=== PATIENT | female | born 1975 | race Caucasian/White ===

== ENCOUNTER → 2016-04-07 | Outpatient (CLI) | payer BC ==
--- NOTE | 2016-04-07 08:47 | CT ---
EXAMINATION TYPE: CT brain wo con DATE OF EXAM: 04/07/2016 8:34 AM COMPARISON: NONE HISTORY: Headache CT DLP: 1012.70 mGycm Automated exposure control for dose reduction was used. FINDINGS: Central structures are midline. There is no evidence of hydrocephalus. No acute focal lesion, mass ef fect or midline shift is seen. I do not see evidence of intracranial blood. Visualized portions of the paranasal sinuses and mastoids are clear. There is no depressed skull frac ture. IMPRESSION: NORMAL CT SCAN OF THE BRAIN.
== END | disposition home or self-care (01) ==
LOC: RADCTMAIN 08:11
PROVIDERS: ATTEND Family Medicine
DX: R51 Headache (principal)
CPT/HCPCS: 70450

== ENCOUNTER 2016-07-12 19:29 | Emergency (ER) | payer BC ==
[2016-07-12] MEDS ORDERED: SODIUM CHLORIDE 0.9% 500 ML IV STA (20:27)
--- NOTE | 2016-07-12 20:31 | ED ---
Headache HPI - General Chief Complaint: Headache Stated Complaint: dizzy/headache Time Seen by Provider: 07/12/16 20:09 Mode of arrival: ambulatory Limitations: no limitations - History of Present Illness Initial Comments: Planing about headache and numb buzzing feeling in her head buzzing is off-and- on in her head for some time dizziness headache, is quite pounding in her blood pressure was elevated today. She does have a history of tension headache and also has a history of depression she was started on fluoxetine about 3 days ago she don't feel this is because of fluoxetine because she has been on fluoxetine for 10 years prior. Denies any fever no chills no neck stiffness no sore throat no blurred vision no slurred speech - Related Data Home Medications Medication Instructions Recorded Confirmed FLUoxetine HCL [PROzac] 20 mg PO DAILY 09/30/13 07/12/16 Metoprolol Succinate [Toprol XL] 37.5 mg PO DAILY 09/30/13 07/12/16 L.acidoph,Paracasei, B.lactis 1 cap PO DAILY 07/12/16 07/12/16 [Probiotic] Magnesium Oxide [Mag-Ox] 250 mg PO DAILY 07/12/16 07/12/16 Multivitamins, Thera [Multivitamin 1 tab PO DAILY 07/12/16 07/12/16 (formulary)] Allergies Allergy/AdvReac Type Severity Reaction Status Date / Time amoxicillin [Amoxicillin] Allergy Unknown Verified 07/12/16 20:38 bupropion HCl Allergy Rash/Hives Verified 07/12/16 20:38 [From Wellbutrin] codeine Allergy Nausea & Verified 07/12/16 20:38 Vomiting & Diarrhea morphine Allergy Unknown Verified 07/12/16 20:38 sulfamethoxazole Allergy Rash/Hives Verified 07/12/16 20:38 [From Bactrim] trimethoprim [From Bactrim] Allergy Rash/Hives Verified 07/12/16 20:38 Review of Systems ROS Statement: Those systems with pertinent positive or pertinent negative responses have been documented in the HPI. ROS Other: All systems not noted in ROS Statement are negative. Past Medical History Additional Past Medical History / Comment(s): AVNRT, PVC's, /kidney stones/ tumors liver History of Any Multi-Drug Resistant Organisms: None Reported Past Surgical History: Adenoidectomy, Tonsillectomy Additional Past Surgical History / Comment(s): Liver surgery, Hernia repair. Leat surgery performed on cervix Past Psychological History: Anxiety, Depression Smoking Status: Former smoker Past Alcohol Use History: None Reported Past Drug Use History: None Reported General Exam - General Exam Comments Initial Comments: General: The patient is awake and alert, mildly anxious Skin: Skin is warm and dry and no rashes or lesions are noted. Eye: Pupils are equal, round and reactive to light, extra-ocular movements are intact; there is normal conjunctiva bilaterally. Ears, nose, mouth and throat: There are moist mucous membranes and no oral lesions. No obvious signs of sinus flexion Neck: The neck is supple, there is no tenderness Cardiovascular: There is a regular rate and rhythm. No murmur, rub or gallop is appreciated. Respiratory: To auscultation bilateral, no wheezing no rhonchi no distress respiratory bonds noticed Gastrointestinal: Soft, non-distended, non-tender abdomen without masses or organomegaly noted. There is no rebound or guarding present. Bowel sounds are unremarkable. Back: There is no tenderness to palpation in the midline. There is no obvious deformity. Musculoskeletal: Normal ROM, no tenderness, There is no pedal edema. There is no calf tenderness or swelling. No cords were appreciated. Neurological: CN II-XII intact, Cranial nerves III through XII are intact. There are no obvious motor or sensory deficits. Coordination appears grossly intact. Speech is normal. Psychiatric: Cooperative, appropriate mood & affect, normal judgment. Limitations: no limitations Course Vital Signs 07/12/16 07/12/16 19:42 20:46 Temperature 98.3 F Pulse Rate 84 90 Respiratory 20 18 Rate Blood Pressure 177/90 151/94 O2 Sat by Pulse 99 99 Oximetry - Reevaluation(s) Reevaluation #1: 07/12/16 20:36 She reluctantly agreed for the shot of Toradol intramuscular and now she'll go for the head CT 07/12/16 21:27 Patient was reassessed at [address] is pending at this point patient was endorsed to Dr. Burden to follow-up on the head CT, once head CT is reported to normal was she will go home follow-up with her family doctor and it is better with the fluid bolus and she wanted to hold off the Toradol Reevaluation #2: 07/12/16 21:[address] report was filed is a 2130, she is feeling better head CT is normal she is discharged to follow with her family doctor Disposition Clinical Impression: Headache Disposition: HOME SELF-CARE Condition: Good Instructions: Acute Headache (ED) Referrals: Samuel Godfrey MD [Primary Care Provider] - 1-2 days
[2016-07-12] MEDS: KETOROLAC 30 MG/ML 1 ML VIAL IVP STA ×2 (20:44→20:46)
[2016-07-12 20:56] VITALS: RESP 18
--- NOTE | 2016-07-12 21:31 | CT ---
EXAMINATION TYPE: CT brain wo con DATE OF EXAM: 07/12/2016 9:10 PM COMPARISON: 04/07/2016 HISTORY: Headache, dizziness and buzzing noise in ears. CT DLP: 1041.50 mGycm Automated exposure control for dose reduction was used. FINDINGS: The ventricles and sulci appear normal. There is no mass effect nor midline shift. There is no sign o f intracranial hemorrhage. The calvarium appears intact. IMPRESSION: Normal unenhanced head CT scan. No change.
[2016-07-12 21:59] VITALS: BP 125/79; PULSE 70; TEMP 98.4
== END 2016-07-12 22:09 | disposition home or self-care (01) ==
LOC: EC 19:29
DX: R51 Headache (principal); R42 Dizziness and giddiness; F32.9 Major depressive disorder, single episode, unspecified; F41.9 Anxiety disorder, unspecified; Z53.20 Procedure and treatment not carried out because of patient's decision for unspecified reasons; Z87.891 Personal history of nicotine dependence; Z79.899 Other long term (current) drug therapy; Z88.0 Allergy status to penicillin; Z88.5 Allergy status to narcotic agent; Z88.2 Allergy status to sulfonamides; Z88.8 Allergy status to other drugs, medicaments and biological substances
CPT/HCPCS: 70450; 96360; 99283

== ENCOUNTER → 2016-09-15 | Outpatient (CLI) | payer BC ==
--- NOTE | 2016-09-15 09:14 | MM ---
Reason for exam: additional evaluation requested from prior study. Last mammogram was performed 1 year and 6 months ago. History: Family history of breast cancer in maternal aunt at age 40. Physical Findings: Nurse did not find any significant physical abnormalities on exam. MG 3D Diag Mammo W/Cad TREE Bilateral CC and MLO view(s) were taken. Prior study comparison: March 22, 2015, right breast MG 3d diag mammo w/cad RT. September 16, 2014, right breast MG work up mamm w CAD RT. There are scattered fibroglandular densities. No significant new findings when compared with previous films. These results were verbally communicated with the patient and result sheet given to the patient on 09/15/16. ASSESSMENT: Benign, BI-RAD 2 RECOMMENDATION: Routine screening mammogram of both breasts in 1 year.
== END | disposition home or self-care (01) ==
LOC: RADMAMWWP 07:01
PROVIDERS: ATTEND Obstetrics & Gynecology
DX: R92.8 Other abnormal and inconclusive findings on diagnostic imaging of breast (principal)
CPT/HCPCS: G0204; G0279

== ENCOUNTER 2017-07-05 18:10 | Emergency (ER) | payer BC ==
[2017-07-05] MEDS ORDERED: ONDANSETRON 4 MG/2 ML VIAL IVP STA (18:30)
[2017-07-05] MEDS ORDERED: SODIUM CHLORIDE 0.9% 1,000 ML IV STA (18:30)
[2017-07-05] MEDS ORDERED: KETOROLAC 30 MG/ML 1 ML VIAL IVP STA (18:31)
--- NOTE | 2017-07-05 18:35 | ED ---
Abdominal Pain HPI - General Chief Complaint: Abdominal Pain Stated Complaint: Abdominal pain Time Seen by Provider: 07/05/17 18:19 Source: patient Mode of arrival: ambulatory Limitations: no limitations - History of Present Illness Initial Comments: 41-year-old female patient presents to the emergency department today for evaluation of right upper quadrant abdominal pain radiates into her back. Patient states that this has been present for the last 3 weeks intermittently. Patient states this seems to be worsening. States she has been nauseated with this but has not vomited. She denies any constipation or diarrhea. Denies any fevers or chills. States she is urinating without difficulty. Patient has had the left lobe of the liver resected for benign tumor and a subsequent incisional hernia repair. Patient denies any recent rash, shortness breath, chest pain, numbness, tingling, dizziness, weakness, hematuria, dysuria, urinary urgency, urinary frequency, headache, visual changes, or any other complaints. - Related Data Home Medications Medication Instructions Recorded Confirmed FLUoxetine HCL [PROzac] 20 mg PO DAILY 09/30/13 07/05/17 Metoprolol Succinate [Toprol XL] 25 mg PO DAILY 09/30/13 07/05/17 Esomeprazole Magnesium [NexIUM] 20 mg PO DAILY 07/05/17 07/05/17 Allergies Allergy/AdvReac Type Severity Reaction Status Date / Time amoxicillin [Amoxicillin] Allergy Unknown Verified 07/05/17 18:36 bupropion HCl Allergy Rash/Hives Verified 07/05/17 18:36 [From Wellbutrin] codeine Allergy Nausea & Verified 07/05/17 18:36 Vomiting & Diarrhea morphine Allergy Unknown Verified 07/05/17 18:36 sulfamethoxazole Allergy Rash/Hives Verified 07/05/17 18:36 [From Bactrim] trimethoprim [From Bactrim] Allergy Rash/Hives Verified 07/05/17 18:36 sertraline [From Zoloft] AdvReac SUICIDAL Verified 07/05/17 18:36 THOUGHTS Review of Systems ROS Statement: Those systems with pertinent positive or pertinent negative responses have been documented in the HPI. ROS Other: All systems not noted in ROS Statement are negative. Past Medical History Additional Past Medical History / Comment(s): AVNRT, PVC's, /kidney stones/ tumors liver History of Any Multi-Drug Resistant Organisms: None Reported Past Surgical History: Adenoidectomy, Tonsillectomy Additional Past Surgical History / Comment(s): Liver surgery, Hernia repair. Leat surgery performed on cervix Past Psychological History: Anxiety, Depression Smoking Status: Former smoker Past Alcohol Use History: None Reported Past Drug Use History: None Reported General Exam Limitations: no limitations General appearance: alert, in no apparent distress, other (This is a well- developed, well-nourished adult female patient in no acute distress. Vital signs upon presentation are temperature 98.3F, pulse 93, respirations 20, blood pressure 156/86, pulse ox 99% on room air.) Eye exam: Present: normal appearance, PERRL, EOMI. Absent: scleral icterus, conjunctival injection, periorbital swelling ENT exam: Present: normal exam, normal oropharynx, mucous membranes moist Respiratory exam: Present: normal lung sounds bilaterally. Absent: respiratory distress, wheezes, rales, rhonchi, stridor Cardiovascular Exam: Present: regular rate, normal rhythm, normal heart sounds. Absent: systolic murmur, diastolic murmur, rubs, gallop, clicks GI/Abdominal exam: Present: soft, normal bowel sounds. Absent: distended, tenderness, guarding, rebound, rigid Neurological exam: Present: alert, oriented X3, CN II-XII intact Psychiatric exam: Present: normal affect, normal mood Skin exam: Present: warm, dry, intact, normal color. Absent: rash Course Vital Signs 07/05/17 07/05/17 18:16 20:39 Temperature 98.3 F 97.2 F L Pulse Rate 93 98 Respiratory 20 18 Rate Blood Pressure 156/86 138/89 O2 Sat by Pulse 99 99 Oximetry Medical Decision Making - Medical Decision Making 41-year-old female patient presented to the emergency department today for evaluation of right upper quadrant abdominal pain that radiated into her back. Physical examination is unremarkable. Abdomen was nontender. Labs reviewed and are unremarkable. Patient did have a small amount of blood in her urine. Did discuss the possibility of a kidney stone, patient states the pain feels different and she does not want to be treated for kidney stone. She does have an appointment with her primary care physician tomorrow. She is urged to keep this appointment. Return parameters discussed in detail. She verbalizes understanding and agrees with this plan. - Lab Data Result diagrams: 07/05/17 18:30 07/05/17 18:30 Lab Results 07/05/17 07/05/17 07/05/17 Range/Units 18:30 18:30 18:30 WBC 11.8 H (3.8-10.6) k/uL RBC 4.84 (3.80-5.40) m/uL Hgb 13.3 (11.4-16.0) gm/dL Hct 40.2 (34.0-46.0) % MCV 83.1 (80.0-100.0) fL MCH 27.5 (25.0-35.0) pg MCHC 33.1 (31.0-37.0) g/dL RDW 13.2 (11.5-15.5) % Plt Count 368 (150-450) k/uL Neutrophils % 66 % Lymphocytes % 26 % Monocytes % 5 % Eosinophils % 1 % Basophils % 0 % Neutrophils # 7.8 H (1.3-7.7) k/uL Lymphocytes # 3.1 (1.0-4.8) k/uL Monocytes # 0.5 (0-1.0) k/uL Eosinophils # 0.1 (0-0.7) k/uL Basophils # 0.1 (0-0.2) k/uL Sodium 141 (137-145) mmol/L Potassium 3.9 (3.5-5.1) mmol/L Chloride 104 (98-107) mmol/L Carbon Dioxide 24 (22-30) mmol/L Anion Gap 13 mmol/L BUN 13 (7-17) mg/dL Creatinine 0.80 (0.52-1.04) mg/dL Est GFR (CKD-EPI)AfAm >90 (>60 ml/min/1.73 sqM) Est GFR (CKD-EPI)NonAf >90 (>60 ml/min/1.73 sqM) Glucose 104 H (74-99) mg/dL Calcium 9.6 (8.4-10.2) mg/dL Total Bilirubin 0.3 (0.2-1.3) mg/dL AST 28 (14-36) U/L ALT 24 (9-52) U/L Alkaline Phosphatase 87 (38-126) U/L Total Protein 7.2 (6.3-8.2) g/dL Albumin 4.5 (3.5-5.0) g/dL Amylase 60 (30-110) U/L Lipase 116 (23-300) U/L Urine Color Urine Appearance (Clear) Urine pH (5.0-8.0) Ur Specific [place] (1.001-1.035) Urine Protein (Negative) Urine Glucose (UA) (Negative) Urine Ketones (Negative) Urine Blood (Negative) Urine Nitrite (Negative) Urine Bilirubin (Negative) Urine Urobilinogen (<2.0) mg/dL Ur Leukocyte Esterase (Negative) Urine RBC (0-5) /hpf Urine WBC (0-5) /hpf Ur Squamous Epith Cells (0-4) /hpf Urine Mucus (None) /hpf Urine HCG, Qual Not Detected (Not Detectd) 07/05/17 Range/Units 18:30 WBC (3.8-10.6) k/uL RBC (3.80-5.40) m/uL Hgb (11.4-16.0) gm/dL Hct (34.0-46.0) % MCV (80.0-100.0) fL MCH (25.0-35.0) pg MCHC (31.0-37.0) g/dL RDW (11.5-15.5) % Plt Count (150-450) k/uL Neutrophils % % Lymphocytes % % Monocytes % % Eosinophils % % Basophils % % Neutrophils # (1.3-7.7) k/uL Lymphocytes # (1.0-4.8) k/uL Monocytes # (0-1.0) k/uL Eosinophils # (0-0.7) k/uL Basophils # (0-0.2) k/uL Sodium (137-145) mmol/L Potassium (3.5-5.1) mmol/L Chloride (98-107) mmol/L Carbon Dioxide (22-30) mmol/L Anion Gap mmol/L BUN (7-17) mg/dL Creatinine (0.52-1.04) mg/dL Est GFR (CKD-EPI)AfAm (>60 ml/min/1.73 sqM) Est GFR (CKD-EPI)NonAf (>60 ml/min/1.73 sqM) Glucose (74-99) mg/dL Calcium (8.4-10.2) mg/dL Total Bilirubin (0.2-1.3) mg/dL AST (14-36) U/L ALT (9-52) U/L Alkaline Phosphatase (38-126) U/L Total Protein (6.3-8.2) g/dL Albumin (3.5-5.0) g/dL Amylase (30-110) U/L Lipase (23-300) U/L Urine Color Yellow Urine Appearance Cloudy H (Clear) Urine pH 6.5 (5.0-8.0) Ur Specific [place] 1.025 (1.001-1.035) Urine Protein Trace H (Negative) Urine Glucose (UA) Negative (Negative) Urine Ketones Negative (Negative) Urine Blood Small H (Negative) Urine Nitrite Negative (Negative) Urine Bilirubin Negative (Negative) Urine Urobilinogen 2.0 (<2.0) mg/dL Ur Leukocyte Esterase Moderate H (Negative) Urine RBC 1 (0-5) /hpf Urine WBC 13 H (0-5) /hpf Ur Squamous Epith Cells 9 H (0-4) /hpf Urine Mucus Occasional H (None) /hpf Urine HCG, Qual (Not Detectd) - Radiology Data Radiology results: report reviewed, image reviewed 2 views of the abdomen are obtained. There is no pneumoperitoneum. No pneumatosis. Bowel gas pattern is normal. Hepatomegaly is redemonstrated, similar to the prior study. The soft tissues and skeletal structures of the abdomen and pelvis are otherwise unremarkable. There are no calcifications over the kidneys are expected course of the ureters or the urinary bladder. Impression by Dr. Drake Gage shows redemonstrated hepatomegaly, otherwise negative exam. Ultrasound of the right upper quadrant abdomen was obtained. Report was reviewed in its entirety. Impression by Dr. Drake Gage shows no acute process. Disposition Clinical Impression: Abdominal pain Disposition: HOME SELF-CARE Condition: Good Instructions: Abdominal Pain (ED) Additional Instructions: Follow-up with your primary care physician for recheck as soon as possible. Return here immediately for any new, worsening, or concerning symptoms. Is patient prescribed a controlled substance at d/c from ED?: No Referrals: Samuel Godfrey MD [Primary Care Provider] - 1-2 days Time of Disposition: 20:54
[2017-07-05 18:50] LABS: Basophils # (A) 0.1 k/uL (0-0.2); Basophils % (A) 0 %; Eosinophils # (A) 0.1 k/uL (0-0.7); Eosinophils % (A) 1 %; HCT 40.2 % (34.0-46.0); HGB 13.3 gm/dL (11.4-16.0); Lymphocytes # (A) 3.1 k/uL (1.0-4.8); Lymphocytes % (A) 26 %; MCH 27.5 pg (25.0-35.0); MCHC 33.1 g/dL (31.0-37.0); MCV 83.1 fL (80.0-100.0); Mean Platelet Volume 6.3; Monocytes # (A) 0.5 k/uL (0-1.0); Monocytes % (A) 5 %; Neutrophils # (A) 7.8 k/uL (1.3-7.7); Neutrophils % (A) 66 %; Platelet Count 368 k/uL (150-450); RBC 4.84 m/uL (3.80-5.40); RDW 13.2 % (11.5-15.5); WBC 11.8 k/uL (3.8-10.6)
[2017-07-05 18:51] LABS: Appearance,Urine Cloudy (Clear); Bilirubin,Urine Negative (Negative); Blood,Urine Small (Negative); Color,Urine Yellow; Glucose,Urine (UA) Negative (Negative); Ketones,Urine Negative (Negative); Leukocyte Esterase,Urine Moderate (Negative); Mucus,Urine Occasional /hpf; Nitrite,Urine Negative (Negative); PH, Urine 6.5 (5.0-8.0); Protein,Urine Trace (Negative); RBC,Urine 1 /hpf (0-5); Specific Gravity,Urine 1.025 (1.001-1.035); Squamous Epithelial Cell,Urine 9 /hpf (0-4); WBC,Urine 13 /hpf (0-5)
[2017-07-05 18:58] LABS: ALT 24 U/L (9-52); AST 28 U/L (14-36); Albumin 4.5 g/dL (3.5-5.0); Alkaline Phosphatase 87 U/L (38-126); Amylase 60 U/L (30-110); Anion Gap 13 mmol/L; Blood Urea Nitrogen 13 mg/dL (7-17); Calcium 9.6 mg/dL (8.4-10.2); Carbon Dioxide 24 mmol/L (22-30); Chloride 104 mmol/L (98-107); Glucose 104 mg/dL (74-99); Lipase 116 U/L (23-300); Potassium 3.9 mmol/L (3.5-5.1); Sodium 141 mmol/L (137-145); Total Bilirubin 0.3 mg/dL (0.2-1.3); Total Protein 7.2 g/dL (6.3-8.2)
[2017-07-05] MEDS ORDERED: ACETAMINOPHEN TAB 500 MG TAB PO STA (19:05)
--- NOTE | 2017-07-05 19:16 | XR ---
EXAMINATION TYPE: XR KUB 2 views DATE OF EXAM: 07/05/2017 COMPARISON: 07/02/2015 HISTORY: Right upper quadrant pain with nausea TECHNIQUE: 2 upright views FINDINGS: The visualized lung bases and pleural spaces are negative. There is no pneumoperitoneum. No pneumatosis. The bowel gas pattern is normal. Hepatomegaly is redemonstrated, similar to the prior study. The soft tissues and skeletal structures of the abdomen and pelvis are otherwise unremarkable. There are no calcifications over the kidneys or expected course of the ureters or the urinary bladder . IMPRESSION: REDEMONSTRATED HEPATOMEGALY, OTHERWISE NEGATIVE EXAMINATION.
[2017-07-05 20:40] VITALS: BP 138/89; PULSE 98; RESP 18; TEMP 97.2
--- NOTE | 2017-07-05 20:47 | US ---
EXAMINATION TYPE: US abdomen limited DATE OF EXAM: 07/05/2017 COMPARISON: CT 2015, US 2014 CLINICAL HISTORY: RUQ pain. RUQ pain and back pain x 3 weeks that has gotten worse in past few days, nausea x 1 day EXAM MEASUREMENTS: Liver Length: 20.2 cm Gallbladder Wall: 0.1 cm CBD: 0.4 cm Right Kidney: 11.4 x 4.3 x 5.0 cm Pancreas: obscured by overlying midline bowel gas Liver: enlarged, course echotexture Gallbladder: wnl Evidence for sonographic Donald's sign: no CBD: visualized portions wnl, limited by overlying bowel gas Right Kidney: multiple small echogenic foci seen with largest measuring 0.6cm in lateral upper pole IMPRESSION: No acute process.
== END 2017-07-05 21:02 | disposition home or self-care (01) ==
LOC: EC 18:10
DX: R10.11 Right upper quadrant pain (principal); R16.0 Hepatomegaly, not elsewhere classified; R31.9 Hematuria, unspecified; M54.9 Dorsalgia, unspecified; R11.0 Nausea; F32.9 Major depressive disorder, single episode, unspecified; F41.9 Anxiety disorder, unspecified; Z87.891 Personal history of nicotine dependence; Z79.899 Other long term (current) drug therapy; Z88.0 Allergy status to penicillin; Z88.1 Allergy status to other antibiotic agents; Z88.5 Allergy status to narcotic agent; Z88.8 Allergy status to other drugs, medicaments and biological substances; Z86.79 Personal history of other diseases of the circulatory system; Z90.49 Acquired absence of other specified parts of digestive tract; Z53.20 Procedure and treatment not carried out because of patient's decision for unspecified reasons
CPT/HCPCS: 36415; 74018; 76705; 80053; 81001; 81025; 82150; 83690; 85025; 93005; 96360; 96361; 99284

== ENCOUNTER → 2018-06-13 | Outpatient (CLI) | payer BC ==
--- NOTE | 2018-06-14 08:25 | MM ---
Reason for exam: screening (asymptomatic). Last mammogram was performed 1 year and 9 months ago. History: Family history of breast cancer in maternal aunt at age 40. Physical Findings: A clinical breast exam by your physician is recommended on an annual basis and results should be correlated with mammographic findings. MG Screening Mammo w CAD Bilateral CC and MLO view(s) were taken. Prior study comparison: September 15, 2016, bilateral MG 3d diag mammo w/cad TREE. March 22, 2015, right breast MG 3d diag mammo w/cad RT. The breast tissue is heterogeneously dense. This may lower the sensitivity of mammography. No significant changes when compared with prior studies. ASSESSMENT: Negative, BI-RAD 1 RECOMMENDATION: Routine screening mammogram of both breasts in 1 year.
== END | disposition home or self-care (01) ==
LOC: RADMAMWWP 09:47
PROVIDERS: ATTEND Family Medicine
DX: Z12.31 Encounter for screening mammogram for malignant neoplasm of breast (principal)
CPT/HCPCS: 77067

== ENCOUNTER → 2018-09-09 | Outpatient (CLI) | payer BC ==
--- NOTE | 2018-09-09 13:04 | US ---
EXAMINATION TYPE: US abdomen complete DATE OF EXAM: 09/09/2018 COMPARISON: 07/05/2017 CLINICAL HISTORY: R10.11 R upper quad pain. RUQ pain, Left lobe of liver removed x 9 years ago. Hx l iver lesions per patient. EXAM MEASUREMENTS: Liver Length: 21.2 cm Gallbladder Wall: 0.1 cm CBD: 0.3 cm Spleen: 10.6 cm Right Kidney: 10.8 x 4.1 x 4.1 cm Left Kidney: 10.9 x 5.3 x 5.3 cm Pancreas: heterogenous Liver: Appears enlarged. No focal lesions visualized. Gallbladder: wnl Evidence for sonographic Dnoald's sign: neg CBD: wnl Spleen: wnl Right Kidney: wnl Left Kidney: wnl Upper IVC: wnl Abd Aorta: No AAA visualized The liver is heterogenous. There is evidence of hepatomegaly. The intrahepatic portion of the IVC and proximal abdominal aorta are within normal limits. There is no evidence of cholelithiasis. Common bile duct is unremarkable. The visualized portions of the pancreas are homogenous. The spleen is un remarkable. Kidneys are symmetric and free of hydronephrosis. No renal lesions are seen. IMPRESSION: Hepatomegaly with some mild underlying hepatic steatosis suggested.
== END | disposition home or self-care (01) ==
LOC: RADUSWWP 07:25
PROVIDERS: ATTEND Family Medicine
DX: R10.11 Right upper quadrant pain (principal)
CPT/HCPCS: 76700

== ENCOUNTER → 2018-10-12 | Outpatient (CLI) | payer BC ==
--- NOTE | 2018-10-12 11:22 | NM ---
EXAMINATION TYPE: NM hepatobiliary w EF DATE OF EXAM: 10/12/2018 COMPARISON: NONE INDICATION: Right upper quadrant pain TECHNIQUE: After the intravenous administration of 4.2 mCi Tc 99m Mebrofenin hepatobiliary scintigrap hy is performed. Images were obtained immediately post injection. FINDINGS: There is prompt uptake and excretion of radiotracer by the liver. Extrahepatic ducts are identified at 12 minutes. The gallbladder is visualized within 16 minutes. Small bowel activity is noted within 42 minutes. At one hour 8 ounces of oral ensure plus is given to mimic CCK and gallbladder ejection fraction is c alculated at 81 %, which is mildly elevated range. (Normal >35% and <80%.). IMPRESSION: 1. Clinical consideration for biliary hyperkinesia is recommended with an ejection fraction of 81%. Normal less than 80%.
== END | disposition home or self-care (01) ==
LOC: RADNMMAIN 08:52
PROVIDERS: ATTEND Family Medicine
DX: R10.11 Right upper quadrant pain (principal)
CPT/HCPCS: 78226; A9537

== ENCOUNTER → 2018-10-26 | Outpatient (CLI) | payer BC ==
--- NOTE | 2018-10-26 11:05 | CT ---
EXAMINATION TYPE: CT abdomen pelvis w con DATE OF EXAM: 10/26/2018 COMPARISON: 08/13/2015 INDICATION: Abdominal pain. Evaluate for liver mass, kidney stone. Hx hernia repair, liver sx, leat s x on cervix. DLP: 924.40 mGycm, Automated exposure control for dose reduction was used. CONTRAST: 100 mL of Isovue 300. Study performed with Oral Contrast TECHNIQUE: Axial images were obtained from above the diaphragm to the pubic rami in the axial plane a t 5 mm thick sections. Reconstructed images are reviewed on the computer in the coronal plane. FINDINGS: Limited CT sections are obtained the lung bases. The lung bases are clear. CT ABDOMEN: Liver: No discrete liver mass is identified. Delayed images through the liver are homogenous. Hepatom egaly is present measuring 24.9 cm. Normal less than 15.5 cm. Spleen: Normal Pancreas: Normal Adrenal glands: The adrenal glands are normal. Gallbladder: Normal Kidneys: No masses are evident. No hydronephrosis is present. No cysts are present. Delayed images were obtained through the kidneys, which remain unremarkable. Aorta: Normal Inferior vena cava: Normal. CT PELVIS: Loops of bowel within the abdomen and pelvis are normal. There are loops of bowel which are incom pletely distended or lack oral contrast limiting their evaluation. Appendix: Not identified. No suspicious dilated tubular structures or inflammatory changes are eviden t. Urinary bladder: Normal. Genitourinary structures: Uterus is prominent. Left ovary contains a 1.6 cm cyst. Adnexal regions are clear. No free fluid is within the pelvis. Osseous structures: No suspicious lytic or sclerotic lesions. IMPRESSIONS: 1. Hepatomegaly. No underlying mass is readily apparent. 2. 1.6 cm left ovarian cyst.
== END | disposition home or self-care (01) ==
LOC: RADCTMAIN 08:26
PROVIDERS: ATTEND Surgery
DX: R16.0 Hepatomegaly, not elsewhere classified (principal); N83.202 Unspecified ovarian cyst, left side; N20.0 Calculus of kidney
CPT/HCPCS: 74177; Q9967

== ENCOUNTER → 2019-12-01 | Outpatient (CLI) | payer BC ==
--- NOTE | 2019-12-02 12:03 | MM ---
Reason for exam: screening (asymptomatic). Last mammogram was performed 1 year and 6 months ago. Physical Findings: A clinical breast exam by your physician is recommended on an annual basis and results should be correlated with mammographic findings. MG Screening Mammo w CAD Bilateral CC and MLO view(s) were taken. Prior study comparison: June 13, 2018, bilateral MG screening mammo w CAD. September 15, 2016, bilateral MG 3d diag mammo w/cad TREE. The breast tissue is heterogeneously dense. This may lower the sensitivity of mammography. Increasing nodularity upper outer right breast. ASSESSMENT: Incomplete: need additional imaging evaluation, BI-RAD 0 RECOMMENDATION: Special view mammogram and ultrasound of the right breast. [facility] will attempt to contact patient to return for supplemental views and ultrasound.
== END | disposition home or self-care (01) ==
LOC: RADMAMWWP 13:58
PROVIDERS: ATTEND Obstetrics & Gynecology
DX: Z12.31 Encounter for screening mammogram for malignant neoplasm of breast (principal)
CPT/HCPCS: 77067

== ENCOUNTER → 2019-12-04 | Outpatient (CLI) | payer BC ==
--- NOTE | 2019-12-04 12:19 | MM ---
Reason for exam: additional evaluation requested from abnormal screening. Last mammogram was performed less than 1 month ago. Physical Findings: Nurse did not find any significant physical abnormalities on exam. MG Work Up Mamm w CAD RT Spot compression CC, spot compression MLO, and LM view(s) were taken of the right breast. Prior study comparison: December 01, 2019, bilateral MG screening mammo w CAD. June 13, 2018, bilateral MG screening mammo w CAD. Focal asymmetry right upper outer quadrant, persistent on compression. These results were verbally communicated with the patient and result sheet given to the patient on 12/04/19. ASSESSMENT: Incomplete: need additional imaging evaluation, BI-RAD 0 RECOMMENDATION: Ultrasound of the right breast.
--- NOTE | 2019-12-04 12:21 | USB ---
Reason for exam: additional evaluation requested from abnormal screening. US Breast Workup Limited RT Right limited breast ultrasound including focal area of concern, retroareolar and axilla demonstrates a 0.8 x 0.8 x 0.4cm oval, solid, hyperechoic lesion, questionable lipoma at 12 o'clock, a 0.4 x 0.3 x 0.2cm oval, cystic lesion at 10 o'clock and a 1.1 x 0.8 x 0.8cm oval lymph node at the axilla. These results were verbally communicated with the patient and result sheet given to the patient on 12/04/19. ASSESSMENT: Benign, BI-RAD 2 RECOMMENDATION: Follow-up diagnostic mammogram of the right breast in 6 months.
== END | disposition home or self-care (01) ==
LOC: RADMAMWWP 09:36
PROVIDERS: ATTEND Obstetrics & Gynecology
DX: R92.8 Other abnormal and inconclusive findings on diagnostic imaging of breast (principal)
CPT/HCPCS: 77065

== ENCOUNTER → 2021-03-31 | Outpatient (CLI) | payer BC ==
--- NOTE | 2021-04-01 14:30 | MM ---
Reason for exam: screening (asymptomatic). Last mammogram was performed 1 year and 4 months ago. Physical Findings: A clinical breast exam by your physician is recommended on an annual basis and results should be correlated with mammographic findings. MG Screening Mammo w CAD Bilateral CC and MLO view(s) were taken. Prior study comparison: December 04, 2019, right breast MG work up mamm w CAD RT. December 01, 2019, bilateral MG screening mammo w CAD. The breast tissue is heterogeneously dense. This may lower the sensitivity of mammography. There is no discrete abnormality. No significant changes when compared with prior studies. ASSESSMENT: Negative, BI-RAD 1 RECOMMENDATION: Routine screening mammogram of both breasts in 1 year.
== END | disposition home or self-care (01) ==
LOC: RADMAMWWP 10:14
PROVIDERS: ATTEND Family Medicine
DX: Z12.31 Encounter for screening mammogram for malignant neoplasm of breast (principal)
CPT/HCPCS: 77067

== ENCOUNTER → 2021-06-01 | Outpatient (CLI) | payer BC ==
--- NOTE | 2021-06-02 08:41 | US ---
EXAMINATION TYPE: US transvaginal DATE OF EXAM: 06/01/2021 COMPARISON: NONE CLINICAL HISTORY: 45-year-old female N92.0 excessive menstruation. Heavy menstruation TECHNIQUE: Transvaginal (TV). FINDINGS: EXAM MEASUREMENTS: Uterus: 12.9 x 6.0 x 9.6 cm Endometrial Stripe: 1.4 cm 1. Uterus: Anteverted. Enlarged and heterogenous. Some myometrial cysts are present anteriorly. 7 mm cervical nabothian cyst. 2. Endometrium: Appears irregular 3. Right Ovary: Not seen 4. Left Ovary: Not seen definitively, however, anechoic area seen left adnexa measuring 2.0 x 1.9 x 1.9 cm 5. Bilateral Adnexa: Appears wnl 6. Posterior cul-de-sac: wnl IMPRESSION: 1. Bulky uterus. Some small anterior myometrial cysts. Consider underlying adenomyosis. Female pelvic MRI to further evaluate if clinically indicated. 2. Endometrial stripe thickening to the upper limits of normal at 1.4 cm. This should correspond to t he late secretory phase of the menstrual cycle. 3. Unable to clearly visualize either ovary. However, there is a cyst in the left adnexa measuring 2. 0 cm, probably arising from the ovary.
== END | disposition home or self-care (01) ==
LOC: RADUSWWP 16:49
PROVIDERS: ATTEND Obstetrics & Gynecology
DX: N92.0 Excessive and frequent menstruation with regular cycle (principal); N85.8 Other specified noninflammatory disorders of uterus
CPT/HCPCS: 76830

== ENCOUNTER → 2022-03-13 | Outpatient (CLI) | payer BC ==
[2022-03-13 14:33] LABS: Basophils # (A) 0.05 X 10*3/uL (0.00-0.10); Basophils % (A) 0.6 %; Eosinophils # (A) 0.12 X 10*3/uL (0.04-0.35); Eosinophils % (A) 1.4 %; HCT 38.1 % (37.2-46.3); HGB 11.1 g/dL (12.0-15.0); Immature Grans, Automated 0.6 %; Lymphocytes % (A) 23.6 %; MCH 24.2 pg (27.0-32.0); MCHC 29.1 g/dL (32.0-37.0); MCV 83.2 fL (80.0-97.0); Mean Platelet Volume 10.2 fL (9.5-12.2); Monocytes # (A) 0.58 X 10*3/uL (0.20-1.00); Monocytes % (A) 6.5 %; NRBC Per 100 WBC 0 /100 WBCS (0.0-0.0); Neutrophils # (A) 5.98 X 10*3/uL (1.80-7.70); Neutrophils % (A) 67.3 %; Platelet Count 428 X 10*3/uL (140-440); RBC 4.58 X 10*6/uL (4.10-5.20); RDW 14.5 % (11.5-14.5); WBC 8.88 X 10*3/uL (4.50-10.00)
== END | disposition home or self-care (01) ==
LOC: LABPAT 08:06
PROVIDERS: ATTEND Obstetrics & Gynecology
DX: Z01.812 Encounter for preprocedural laboratory examination (principal)
CPT/HCPCS: 85025

== ENCOUNTER 2022-03-20 05:53 | Day surgery (SDC) | payer BC ==
--- NOTE | 2022-03-19 08:23 | P.HPOB ---
History of Present Illness H&P Date: 03/19/22 Chief Complaint: Menorrhagia. Persistent low grade cervical pap smear. This patient is a pleasant 46 yr old female who presents for endometrial ablation and LEEP of the endo/ectocervix due to persistent LGSIL and menorrhagia. She initially had SULEIMAN III of the cervix and LEEP in 2002. 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 She also has a long history of menorrhagia. Ultrasound shows normal endometrial thickening, but somewhat irregular. She is requesting endometrial ablation for treatment. Review of Systems Genitourinary: Reports as per HPI, Reports menorrhagia Menstruation: Reports period heavy Past Medical History Past Medical History: GERD/Reflux, Hypertension, Liver Disease, Skin Disorder Additional Past Medical History / Comment(s): PAC , PVC's, /kidney stones 2015/ tumors liver covid 10/10. heavy vaginal bleeding - anemia. rash under breast at intervals . mild eczema desinide History of Any Multi-Drug Resistant Organisms: None Reported Past Surgical History: Adenoidectomy, Tonsillectomy Additional Past Surgical History / Comment(s): Liver surgery left lower lobe out benign adenoma, incisional Hernia repair. Leap surgery performed on cervix 2002 Past Anesthesia/Blood Transfusion Reactions: No Reported Reaction Past Psychological History: No Psychological Hx Reported Smoking Status: Former smoker Past Alcohol Use History: None Reported Past Drug Use History: None Reported - Past Family History Mother Family Medical History: AFIB, Cancer, Hyperlipidemia, Hypertension Additional Family Medical History / Comment(s): Uterine fibroids Father Family Medical History: Cancer, Hyperlipidemia, Hypertension Additional Family Medical History / Comment(s): skin cancer Medications and Allergies Home Medications Medication Instructions Recorded Confirmed Type FLUoxetine HCL [PROzac] 20 mg PO DAILY 09/30/13 03/15/22 History Metoprolol Succinate [Toprol XL] 37.5 mg PO DAILY 09/30/13 03/15/22 History Cholecalciferol (Vitamin D3) 250 mcg PO DAILY 03/15/22 03/15/22 History [Vitamin D3 (125 MCG = 5,000 IU)] Ferrous Sulfate [Feosol] 325 mg PO DAILY 03/15/22 03/15/22 History Omeprazole [PriLOSEC] 20 mg PO DAILY 03/15/22 03/15/22 History Allergies Allergy/AdvReac Type Severity Reaction Status Date / Time amoxicillin [Amoxicillin] Allergy tachycardia Verified 03/15/22 14:44 bupropion HCl Allergy Rash/Hives Verified 03/15/22 14:44 [From Wellbutrin] codeine Allergy Nausea & Verified 03/15/22 14:44 Vomiting & Diarrhea morphine Allergy Bp bottoms Verified 03/15/22 14:44 out sulfamethoxazole Allergy Rash/Hives Verified 03/15/22 14:44 [From Bactrim] trimethoprim [From Bactrim] Allergy Rash/Hives Verified 03/15/22 14:44 sertraline [From Zoloft] AdvReac SUICIDAL Verified 03/15/22 14:44 THOUGHTS Exam - OBG Physical Exam Abdomen: bowel sounds normal, no diffuse tenderness, no bruit present, no guarding noted, no hepatomegaly, no splenomegaly, no mass Vulva: both: normal Vagina: normal moisture, no discharge Cervix: no lesion, no discharge Uterus: normal size Results Transvaginal ultrasound shows endometrium to be 1.4cm, irregular. Pap 11/2021 showed ASCUS. Assessment and Plan Assessment: This is a pleasant 46 yr female with menorrhagia and persistent low grade changes on pap with history of HGSIL. Plan is colposcopy with LEEP excision of the ecto/endocervix and hysteroscopy with D&C and Novasure endometrial ablation. I had a long discussion with Doretha about this surgery and risks: infection, bleeding, possible uterine perforation and/or thermal injury. All of her questions were answered and a written consent obtained. (1) Menorrhagia Status: Acute Code(s): N92.0 - EXCESSIVE AND FREQUENT MENSTRUATION WITH REGULAR CYCLE SNOMED Code(s): 632721029 (2) Low grade squamous intraepithelial lesion (LGSIL) on Papanicolaou smear of cervix Status: Acute Code(s): R87.612 - LOW GRADE INTREPITH LESION CYTO SMR CRVX (LGSIL) SNOMED Code(s): 96489114223696
[~2022-03-20 05:53] MED LIST: Pre Op ABX Message 1 EACH MISC MISCELLANE ONE
[2022-03-20] MEDS ORDERED: LACTATED RINGERS 1,000 ML IV ONE ×2 (06:33→08:26)
[2022-03-20] MEDS ORDERED: ONDANSETRON 4 MG/2 ML VIAL ONE (06:36)
[2022-03-20] MEDS ORDERED: DEXAMETHASONE SOD PHOSPHATE 4 MG/ML 1 ML VIAL IVP ONE (06:39)
[2022-03-20] MEDS ORDERED: SCOPOLAMINE 1 MG/72 HR PATCH TRANSDERM ONE (06:39)
[2022-03-20] MEDS ORDERED: DEXAMETHASONE SOD PHOSPHATE 4 MG/ML 1 ML VIAL IV ONE (06:47)
[2022-03-20] MEDS ORDERED: MIDAZOLAM 2 MG/2 ML VIAL IV PRN (06:47)
[2022-03-20] MEDS ORDERED: LACTATED RINGERS 1,000 ML IV SCH (06:47)
[2022-03-20] MEDS ORDERED: HYDROmorphone 0.5 MG/0.5 ML SYRINGE IVP PRN (06:47)
[2022-03-20] MEDS ORDERED: ONDANSETRON 4 MG/2 ML VIAL IVP ONE (06:47)
[2022-03-20] MEDS ORDERED: LIDOCAINE 1% (10MG/ML) FOR IV START INTRADERMA PRN (06:47)
[2022-03-20] MEDS ORDERED: SUCCINYLCHOLINE CHLORIDE 200 MG/10 ML VIAL IV ONE (06:50)
[2022-03-20] MEDS ORDERED: KETOROLAC 15 MG/ML 1 ML VIAL ONE (06:50)
[2022-03-20] MEDS ORDERED: LIDOCAINE 2% INJ 20 MG/ML (2 ML VIAL) ONE (06:50)
[2022-03-20] MEDS ORDERED: fentaNYL (PF) 50 MCG/ML 2 ML AMP ONE (06:50)
[2022-03-20] MEDS ORDERED: PROPOFOL 10 MG/ML 20 ML VIAL IV ONE (06:50)
[2022-03-20] MEDS ORDERED: MIDAZOLAM 2 MG/2 ML VIAL ONE (06:50)
[2022-03-20] MEDS ORDERED: IODINE/POTASSIUM IODIDE 14 ML BOTTLE TOPICAL ONE (07:20)
[2022-03-20] MEDS ORDERED: FERRIC SUBSULFATE (MONSELS) JAR TOPICAL ONE (07:20)
--- NOTE | 2022-03-20 07:44 | P.OP ---
Date of Procedure: 03/20/22 Preoperative Diagnosis: #1: Menorrhagia. #2: Persistent low-grade cervical dysplasia Postoperative Diagnosis: Same Procedure(s) Performed: #1: Hysteroscopy. #2: Dilation and curettage #3: NovaSure endometrial ablation #4: LEEP excision of the ectocervix and endocervix Anesthesia: FARIDA Surgeon: Guerrero Pimentel Estimated Blood Loss (ml): 20 Urine output (ml): 20 Pathology: other (Endometrial curettings and ectocervix and endocervix) Condition: stable Disposition: PACU Indications for Procedure: Please see dictated H&P for intimate details of this patient's admission. Brief summary is a pleasant 46-year-old 3 para 3 female with long-standing menorrhagia and low-grade cervical changes on Pap smear. Patient presents for endometrial ablation and LEEP excision of the ectocervix endocervix. She does understand the surgery and risks and risks of infection, bleeding, possible uterine perforation, and/or thermal injury. All the patient's questions are answered and a written consent is obtained. Operative Findings: This patient had a normal-appearing endometrial cavity. Cervix had surgical changes from her previous LEEP Description of Procedure: This patient is taken to the operating room where she is laid in the supine position. She subsequently undergoes general endotracheal anesthesia without incident. With an adequate level of anesthesia she's placed in dorsal lithotomy position. She has a vaginal and perineal prep and drape. A weighted speculum was placed in the posterior vagina. The bladder is drained at this time for 20 mL of clear urine. An Allis clamp was placed on the anterior lip of the cervix. The uterus is then sounded to 10 cm. Gentle dilation of the endocervix is done to allow the hysteroscope easily and the uterine cavity. Using saline solution hysteroscopy is performed and the endometrial cavity is measured a length of 6.5 cm. With this done the hysteroscope was removed. Cervix is dilated a bit more and a gentle but thorough 4 quadrant curettage is done for adequate sampling. With this completed the NovaSure device is then opened and appears to be intact. It is set at a length of 6.5 cm and opens up to a width of 4.0 cm. After passi ng the cavity integrity test, it is enabled for 143 W for 62 seconds. NovaSure device is then removed and appears to be intact. Hysteroscopy is then performed again and the uterine cavity appears to be ablated up to the endocervix. At this point the weighted speculum and Allis clamp are removed. The coated speculum was placed into the vagina. Using a large LEEP loop at a 60/70 cutting/cautery setting, the entire ectocervix is removed in 1 pass. Then using the small LEEP loop additional endocervical tissue is removed. Excellent hemostasis is noted. Using a Bovie and then cauterize all margins in the endocervical bed. Monsel solution is applied for added hemostasis. This point the procedure is ended. The packing was removed. All counts are correct 3. There are no complications. This patient is awakened from anesthesia and taken recovery room in satisfactory condition.
[2022-03-20 07:49] VITALS: RESP 16; TEMP 96.9
[2022-03-20] MEDS ORDERED: HYDROmorphone 0.5 MG/0.5 ML SYRINGE IVP ONE (07:55)
[2022-03-20] MEDS ORDERED: KETOROLAC 15 MG/ML 1 ML VIAL IVP ONE ×2 (08:20)
[2022-03-20 09:17] VITALS: BP 119/73; PULSE 82
== END 2022-03-20 09:42 | disposition home or self-care (01) ==
LOC: OR 05:53
PROVIDERS: ATTEND Obstetrics & Gynecology
DX: R87.612 Low grade squamous intraepithelial lesion on cytologic smear of cervix (LGSIL) (principal); Z87.410 Personal history of cervical dysplasia; I10 Essential (primary) hypertension; K21.9 Gastro-esophageal reflux disease without esophagitis; I49.3 Ventricular premature depolarization; I49.1 Atrial premature depolarization; Z87.442 Personal history of urinary calculi; Z87.19 Personal history of other diseases of the digestive system; L98.9 Disorder of the skin and subcutaneous tissue, unspecified; D64.9 Anemia, unspecified; Z90.49 Acquired absence of other specified parts of digestive tract; Z98.890 Other specified postprocedural states; Z90.89 Acquired absence of other organs; Z87.891 Personal history of nicotine dependence; Z82.49 Family history of ischemic heart disease and other diseases of the circulatory system; Z83.49 Family history of other endocrine, nutritional and metabolic diseases; Z84.2 Family history of other diseases of the genitourinary system; Z80.8 Family history of malignant neoplasm of other organs or systems; Z79.899 Other long term (current) drug therapy; Z88.0 Allergy status to penicillin; Z88.5 Allergy status to narcotic agent; Z88.2 Allergy status to sulfonamides; Z88.1 Allergy status to other antibiotic agents; Z88.8 Allergy status to other drugs, medicaments and biological substances
CPT/HCPCS: 81025; 88305; 88307; 58563; 57522; J2250; J0330; J1100; J2405; J3010; J1885; J2704; J1170; J2001

== ENCOUNTER → 2023-05-02 | Outpatient (CLI) | payer BC ==
--- NOTE | 2023-05-02 18:39 | MM ---
Reason for Exam: Screening (asymptomatic). Last mammogram was performed 1 year(s) and 1 month(s) ago. Patient History: Menarche at age 11. First Full-Term at age 24. Premenopausal. Patient has history of breast feeding. Hormonal Contraceptives, ending at age 2. Risk Values: Alexa 5 year model risk: 1.0%. NCI Lifetime model risk: 10.2%. Prior Study Comparison: 09/15/2016 Bilateral Diagnostic Mammogram, [facility]. 06/13/2018 Bilateral Screening Mammogram, [facility]. 12/01/2019 Bilateral Screening Mammogram, [facility]. 12/04/2019 Right Diagnostic Mammogram, [facility]. 03/31/2021 Bilateral Screening Mammogram, [facility]. 04/03/2022 Bilateral MG screening mammo w CAD, [facility]. Tissue Density: There are scattered areas of fibroglandular density. Findings: Analyzed By CAD. In the right breast, there is a central area of asymmetric density on the CC view needle depth which is more defined. Further evaluation is recommended. On the right MLO view located posterior and superiorly, the patient's global asymmetry has also become more defined. These two represent separate areas and further evaluation is recommended at both sites. Otherwise, no significant change. Overall Assessment: Incomplete: need additional imaging evaluation, BI-RAD 0 Management: Special View Mammogram of the right breast. Diagnostic Breast Ultrasound of the right breast. Additional views right breast including spot 3-D CC, spot 3-D MLO, and 3-D lateral views. Targeted right breast ultrasound if any persisting abnormality. [facility] will attempt to contact patient to return for supplemental views and ultrasound if indicated. Electronically signed and approved by: Nicole Zamora M.D. Radiologist
== END | disposition home or self-care (01) ==
LOC: RADMAMWWP 08:04
PROVIDERS: ATTEND Family Medicine
DX: Z12.31 Encounter for screening mammogram for malignant neoplasm of breast (principal)
CPT/HCPCS: 77067

== ENCOUNTER → 2023-05-04 | Outpatient (CLI) | payer BC ==
--- NOTE | 2023-05-04 14:49 | MM ---
Reason for Exam: Additional evaluation requested from abnormal screening. Last screening mammogram was performed less than 1 month ago. Patient History: Menarche at age 11. First Full-Term at age 24. Premenopausal. Patient has history of breast feeding. Hormonal Contraceptives, ending at age 2. Risk Values: Alexa 5 year model risk: 1.0%. NCI Lifetime model risk: 10.2%. Prior Study Comparison: 12/04/2019 Right Diagnostic Mammogram, [facility]. 12/04/2019 Right Diagnostic Ultrasound, [facility]. 03/31/2021 Bilateral Screening Mammogram, [facility]. 04/03/2022 Bilateral MG screening mammo w CAD, [facility]. 05/02/2023 Bilateral MG screening mammo w CAD, [facility]. Tissue Density: Right: There are scattered areas of fibroglandular density. Findings: Analyzed By CAD. 8mm isodense circumscribed nodule 12:00 right breast persists on additional views and is larger from older priors. Further ultrasound evaluation is recommended. On spot 3-D MLO view, the posterior superior global asymmetry becomes less defined and has an appearance similar to prior exams. Overall Assessment: Incomplete: need additional imaging evaluation, BI-RAD 0 Management: Diagnostic Breast Ultrasound of the right breast. Electronically signed and approved by: Nicole Zamora M.D. Radiologist
--- NOTE | 2023-05-04 15:20 | USB ---
Reason for Exam: Additional evaluation requested from abnormal screening. Patient History: Menarche at age 11. First Full-Term at age 24. Premenopausal. Patient has history of breast feeding. Hormonal Contraceptives, ending at age 2. Risk Values: Alexa 5 year model risk: 1.0%. NCI Lifetime model risk: 10.2%. Technique: Method: Targeted. Prior Study Comparison: 03/31/2021 Bilateral Screening Mammogram, [facility]. 04/03/2022 Bilateral MG screening mammo w CAD, [facility]. 05/02/2023 Bilateral MG screening mammo w CAD, [facility]. Findings: The upper section of the breast of the right breast, the axilla of the right breast and the retroareolar of the right breast were scanned. Targeted ultrasound superior right breast 11:00 to 1:00 including scanning of the subareolar region and axilla. At the 12:00 position, 5 cm from the nipple, there is a benign 5 mm cyst. At the 12:00 position, also 5 cm from the nipple, there is a second 4 x 3 x 2 mm hypoechoic versus cystic lesion that is surrounded by a shadowing breast tissue and difficult to clearly evaluate. Suspect a cyst and possible mammographic correlate. No other solid or cystic lesion or axillary lymphadenopathy. Short interval follow-up mammogram recommended. Overall Assessment: Probably benign, BI-RAD 3 Management: Diagnostic Mammogram of the right breast in 6 months. A clinical breast exam by your physician is recommended on an annual basis and results should be correlated with mammographic findings. This exam should not preclude additional follow-up of suspicious palpable abnormalities. Results were given to the patient verbally at the time of exam. Electronically signed and approved by: Nicole Zamora M.D. Radiologist
== END | disposition home or self-care (01) ==
LOC: RADMAMWWP 14:03
PROVIDERS: ATTEND Family Medicine
DX: R92.321 Mammographic fibroglandular density, right breast (principal)
CPT/HCPCS: 77061; 77065

== ENCOUNTER → 2023-11-22 | Outpatient (CLI) | payer BC ==
--- NOTE | 2023-11-22 13:17 | MM ---
Reason for Exam: Follow-up at short interval from prior study. Last screening mammogram was performed 7 month(s) ago. Patient History: Menarche at age 11. First Full-Term at age 24. Premenopausal. Patient has history of breast feeding. Hormonal Contraceptives, ending at age 2. Last menstrual period: 11/12/2023 Risk Values: Alexa 5 year model risk: 1.0%. NCI Lifetime model risk: 10.0%. Prior Study Comparison: 09/15/2016 Bilateral Diagnostic Mammogram, [facility]. 06/13/2018 Bilateral Screening Mammogram, [facility]. 12/01/2019 Bilateral Screening Mammogram, [facility]. 12/04/2019 Right Diagnostic Mammogram, [facility]. 03/31/2021 Bilateral Screening Mammogram, [facility]. 04/03/2022 Bilateral MG screening mammo w CAD, [facility]. 05/02/2023 Bilateral MG screening mammo w CAD, [facility]. 05/04/2023 Right MG 3D work up w/cad RT, [facility]. Tissue Density: Right: The breasts are heterogeneously dense, which may obscure small masses. Findings: Analyzed By CAD. No evidence for mass or distortion. No asymmetric density. No suspicious microcalcifications. Benign punctate calcifications are stable. Overall Assessment: Benign, BI-RAD 2 Management: Screening Mammogram of both breasts in 1 year. . Results were given to the patient verbally at the time of exam. Patient should continue monthly self-breast exams. A clinical breast exam by your physician is recommended on an annual basis. This exam should not preclude additional follow-up of suspicious palpable abnormalities. Note on Alexa scores and lifetime risk: 1. A Alexa score greater than 3% is considered moderate risk. If this is the case, consider specialist referral to assess eligibility for a risk reducing agent. 2. If overall lifetime risk for the development of breast cancer is 20% or higher, the patient may qualify for future screening with alternating mammogram and breast MRI. [facility], , 11/22/2023 1:15 PM. Electronically signed and approved by: Jean-Paul Cruz M.D. Radiologis
== END | disposition home or self-care (01) ==
LOC: RADMAMWWP 09:09
PROVIDERS: ATTEND Family Medicine
DX: R92.331 Mammographic heterogeneous density, right breast (principal); R92.8 Other abnormal and inconclusive findings on diagnostic imaging of breast
CPT/HCPCS: 77061; 77065